=== PATIENT | female | born 1990 | race Caucasian/White ===

== ENCOUNTER 2019-01-04 16:17 | Emergency (ER) | payer OTHER ==
[2019-01-04 16:46] VITALS: BMI 40.4
--- NOTE | 2019-01-04 16:48 | PDOC ---
Rapid Medical Evaluation Chief Complaint: Pain Time Seen by Provider: 01/04/19 16:36 Medical Evaluation: Allergies Allergy/AdvReac Type Severity Reaction Status Date / Time codeine Allergy Severe coma Verified 11/27/14 18:33 01/04/19 16:48 I have performed a brief in-person evaluation of this patient. The patient presents with a chief complaint of: left side pain s/p fall down stairs 3 years ago Pertinent physical exam findings: no abdominal or CVA tenderness. I have ordered the following: nothing The patient will proceed to the ED for further evaluation. Discharge Disposition - Diagnosis Pain - Referrals - Patient Instructions - Post Discharge Activity
[2019-01-04] MEDS ORDERED: KETOROLAC TROMETHAMINE 30 MG/1 ML VIAL IM ONE (17:26)
[2019-01-04] MEDS ORDERED: diazePAM 5 MG TABLET PO ONE (17:26)
[2019-01-04] MEDS ORDERED: diazePAM 5 MG TABLET ONE (17:59)
[2019-01-04] MEDS ORDERED: KETOROLAC TROMETHAMINE 30 MG/1 ML VIAL ONE (18:00)
--- NOTE | 2019-01-04 18:03 | PDOC ---
Documentation entered by Lela Garcia SCRIBE, acting as scribe for Gabby Rodriguez MD. Gabby Rodriguez MD: This documentation has been prepared by the Jose davis Adrianna, SCRIBE, under my direction and personally reviewed by me in its entirety. I confirm that the documentation accurately reflects all work, treatment, procedures, and medical decision making performed by me. History of Present Illness - General Chief Complaint: Pain Stated Complaint: PAIN ON LEFT SIDE Time Seen by Provider: 01/04/19 16:36 History Source: Patient Exam Limitations: No Limitations - History of Present Illness Initial Comments: 01/04/19 17:50 28 yo F h/o obesity, chronic back pain, recently moved to [place], here with c/ o low back pain. pt states has had chronic pain since an injury many years ago when she fell down some stairs. gets intermittent sciatic like pain low back radiating down her left leg. pain is worse with bending lifting and prolonged walking. states she has had an MRI under care of a pain doctor in [facility] in 2016, but no recent imaging. no new bowel or blader incontinence. no new weakness or numbness. does get tingling sensation when pain is bad, . no recent trauma or recurrent injury. no f/c no urinary complaints. Past History - Past Medical History Allergies/Adverse Reactions: Allergies Allergy/AdvReac Type Severity Reaction Status Date / Time codeine Allergy Severe coma Verified 01/04/19 16:42 IV contrast Allergy Uncoded 01/04/19 16:43 Home Medications: Ambulatory Orders Diazepam [Valium] 2 mg PO TID PRN #15 tablet MDD 3 01/04/19 Fluoxetine HCl [Prozac -] 25 mg PO DAILY 01/04/19 Ibuprofen [Motrin -] 600 mg PO TID PRN #90 tablet NS 01/04/19 Ranitidine HCl [Zantac] 150 mg PO BID 01/04/19 Asthma: Yes Cancer: No Cardiac Disorders: No COPD: No Diabetes: Yes HTN: Yes Seizures: No Thyroid Disease: No - Suicide/Smoking/Psychosocial Hx Smoking History: Never smoked Have you smoked in the past 12 months: No Hx Alcohol Use: No Drug/Substance Use Hx: No Hx Substance Use Treatment: No Review of Systems - Review of Systems Constitutional: No: Chills, Diaphoresis, Fever HEENTM: No: Eye Pain Respiratory: No: Cough, Orthopnea Cardiac (ROS): No: Chest Pain, Edema Musculoskeletal: Yes: Back Pain Integumentary: No: Bruising, Change in Color Neurological: Yes: Numbness, Paresthesia. No: Headache Psychiatric: No: Depression, Frequent Crying All Other Systems: Reviewed and Negative *Physical Exam - Vital Signs Last Vital Signs Temp Pulse Resp BP Pulse Ox 98.8 F 95 H 17 159/87 97 01/04/19 16:44 01/04/19 16:44 01/04/19 16:44 01/04/19 16:44 01/04/19 16:44 - Physical Exam Comments: 01/04/19 17:53 awake alert lungs clear bilat no wheeze no crackles. heart rrr no mrg abd soft nt nd ext wwp. 5/5 lower extremity strength, sensation intact. no midline spinal tenderness. paraspinal left lumbo sacral m spasm and tenderness. ED Treatment Course - ADDITIONAL ORDERS Additional order review: Laboratory Results 01/04/19 17:30 Urine HCG, Qual Negative *DC/Admit/Observation/Transfer Diagnosis at time of Disposition: Pain, Low back strain - Discharge Dispostion Disposition: HOME Condition at time of disposition: Improved Decision to Admit order: No - Prescriptions Prescriptions: Diazepam [Valium] 2 mg PO TID PRN #15 tablet MDD 3 PRN Reason: Pain Ibuprofen [Motrin -] 600 mg PO TID PRN #90 tablet NS PRN Reason: Pain - Referrals Referrals: Kirill Ziegler MD [Staff Physician] - Kayode Vasquez MD [Staff Physician] - Armida Joseph MD [Staff Physician] - - Patient Instructions Printed Discharge Instructions: Back Pain (Alternative Therapy), DI for Back Strain or Sprain Additional Instructions: you should follow up with a nuerologist for your low back pain. you can call [facility]. see referral information and call to set up appointment. you should also follow up with your primary doctor to discuss referral for physical therapy for your back pain. if you do not have one you can follow up with our clinic at [facility], you will be notified by phone to schedule a followup appointment. you can take motrin 600 mg every 8 hr as needed for pain. take with food. you can also take a muscle relaxer called valium 2 mg. understand this is a controlled substance, and can be addictive. you should not drive after taking medication and do not mix with alcohol as it can make you sleepy. only take it as needed for muscle spasm. return for any sudden weakness , numbness or any concerns. - Post Discharge Activity
[2019-01-04 18:15] VITALS: BP 122/57; PULSE 99; TEMP 99
== END 2019-01-04 18:25 | disposition home or self-care (01) ==
LOC: JER 16:17
PROC: 3E0233Z Introduction of Anti-inflammatory into Muscle, Percutaneous Approach (ICD-10-PCS; principal; 2019-01-04)
DX: M54.5 Low back pain (principal); G89.29 Other chronic pain; E11.9 Type 2 diabetes mellitus without complications; I10 Essential (primary) hypertension; J45.909 Unspecified asthma, uncomplicated
CPT/HCPCS: 84703; 96372; 99282-25